=== PATIENT | male | born 1990 | race Caucasian/White ===

== ENCOUNTER 2020-08-14 21:09 | Emergency (ER) | payer OTHER ==
[~2020-08-14 21:09] MED LIST: OXY-IR 5MG5 MG PO
[2020-08-15] MEDS ORDERED: POLYTRIM EYE DR10 ML EYELF (01:10)
== END 2020-08-15 01:24 | disposition home or self-care (01) ==
LOC: FER 21:09
DX: H16.132 Photokeratitis, left eye (principal)
CPT/HCPCS: 99283